=== PATIENT | male | born 1970 ===

== ENCOUNTER 2023-07-09 18:25 | Emergency (ER) | payer SELFPAY ==
[~2023-07-09] VITALS: Ht 177.8 cm; Wt 88.6 kg
[2023-07-09 18:32] VITALS: TEMP 98.5
[2023-07-09 20:02] LABS: BASOPHILS % (AUTO) 0.3 % (0.0-2.0); EOSINOPHILS % (AUTO) 0.3 % (1.0-6.0); HEMATOCRIT 43.4 % (41-53); HEMOGLOBIN 14.9 g/dL (13.5-17.5); LYMPHOCYTES # (AUTO) 1.1 K/uL (1.0-4.8); LYMPHOCYTES % (AUTO) 14.5 % (22.0-44.0); MEAN CORPUSCULAR HEMOGLOBIN 31.2 pg (26.0-34.0); MEAN CORPUSCULAR HGB CONC 34.3 G/dL (31.0-37.0); MEAN CORPUSCULAR VOLUME 91 fL (80-100); MONOCYTES # (AUTO) 0.3 K/uL (0.1-1.0); MONOCYTES % (AUTO) 4.4 % (2.0-9.0); NEUTROPHILS # (AUTO) 6.1 K/uL (1.8-7.7); NEUTROPHILS % (AUTO) 80.5 % (40.0-70.0); PLATELET COUNT (AUTO) 224 K/uL (150-450); RED BLOOD CELL COUNT(AUTO) 4.78 MIL/uL (4.50-5.90); RED CELL DISTRIBUTION WIDTH 12.6 % (11.5-14.5); WHITE BLOOD COUNT (AUTO) 7.6 K/uL (4.5-11.0)
[2023-07-09 20:15] LABS: ALCOHOL, BLOOD (SERUM) 257 mg/dL (0-10); ANION GAP 11 mmol/L (8-16); CALCIUM, TOTAL 8.2 mg/dL (8.8-10.5); CARBON DIOXIDE 23 mmol/L (22-29); CHLORIDE 105 mmol/L (98-107); CREATININE 1.21 mg/dL (0.60-1.30); GLOMERULAR FILTR. RATE CALC > 60 mL/min (>60); GLUCOSE,RANDOM 130 mg/dL (70-110); POTASSIUM 3.5 mmol/L (3.5-5.1); SODIUM SERUM 139 mmol/L (136-145); UREA NITROGEN, BLOOD 16 mg/dL (7-18)
[2023-07-09 20:20] LABS: ALANINE AMINOTRANSFERASE 42 U/L (12-78); ALBUMIN 3.7 g/dL (3.4-5.0); ALKALINE PHOSPHATASE 77 U/L (46-116); ASPARTATE AMINOTRANSFERASE 37 U/L (15-37); BILIRUBIN,TOTAL 0.3 mg/dL (0.1-1.0); LIPASE 54 U/L (16-77); TOTAL PROTEIN, SERUM 6.5 g/dL (6.4-8.2)
[2023-07-09] MEDS ORDERED: PB/HYOSCY/ATR/SCOP/LIDO/MAALOX 55 ML BOTTLE PO ONE (20:45)
[2023-07-09 21:00] VITALS: BP 134/64; PULSE 101; RESP 17
== END 2023-07-09 21:42 | disposition home or self-care (01) ==
LOC: EMS 18:26
DX: R41.82 Altered mental status, unspecified (principal); F10.129 Alcohol abuse with intoxication, unspecified; Y90.9 Presence of alcohol in blood, level not specified
CPT/HCPCS: 99284; 80053; 83690; 85025; G0480

== ENCOUNTER 2023-12-30 16:13 | Emergency (ER) | payer BC, SELFPAY ==
[~2023-12-30] VITALS: Ht 172.7 cm; Wt 75.0 kg
[2023-12-30 16:15] VITALS: TEMP 98.7
[2023-12-30 16:45] VITALS: BP 156/90; PULSE 97; RESP 16
[2023-12-30] MEDS ORDERED: CORTSOL AD (16:54)
[2023-12-30] MEDS: NEOMYCIN/POLYMYXIN B/HYDROCORT 10 ML OTIC SOLUTION AD ONE (17:43)
== END 2023-12-30 18:29 | disposition home or self-care (01) ==
LOC: EMS 16:21
DX: H60.91 Unspecified otitis externa, right ear (principal); Z98.890 Other specified postprocedural states
CPT/HCPCS: 99283